=== PATIENT | male | born 1945 | race Caucasian/White ===

== ENCOUNTER → 2017-01-05 | Outpatient (CLI) | payer OTHER | END | disposition home or self-care (01) | DX: M17.11 Unilateral primary osteoarthritis, right knee (principal); R26.2 Difficulty in walking, not elsewhere classified; M25.561 Pain in right knee; M25.661 Stiffness of right knee, not elsewhere classified; M62.81 Muscle weakness (generalized); Z74.1 Need for assistance with personal care | CPT/HCPCS: 97161 GP; 97165 GO; 97530 GP; 97537 GO; G8978 GP; G8979 GP; G8980 GP; G8987 GO; G8988 GO; G8989 GO ==

== ENCOUNTER 2017-02-07 21:35 | Inpatient (IN) | payer OTHER ==
[~2017-02-07] VITALS: Ht 172.7 cm; Wt 80.6 kg
[~2017-02-07 21:35] MED LIST: ASPIR 8181 M1 PO; LEVOTHYROXINE88 MCG PO; LIPITOR20 MG PO; NORVASC5 MG PO
[2017-02-08 07:46] VITALS: BP 161/92
[2017-02-08 13:56] VITALS: BP 150/71
[2017-02-08 15:51] VITALS: BP 144/70
[2017-02-08 18:11] VITALS: BP 127/64
[2017-02-08 19:56] VITALS: BP 119/63
[2017-02-09 00:10] VITALS: BP 146/72
[2017-02-09 04:20] VITALS: BP 131/73
[2017-02-09 05:04] LABS: HEMATOCRIT 37.8 % (38.0-50.0); MCV 89.6 FL (86-99)
[2017-02-09 05:59] LABS: ANION GAP 7 MEQ/L (2-14); CHLORIDE 103 MEQ/L (99-109); GFR ESTIMATE (CALCULATED) > 59 mL/min/; GLUCOSE 91 mg/dL (70-99); POTASSIUM 4.4 MEQ/L (3.7-5.4); SAMPLE HEMOLYSIS CHECK 0; SAMPLE ICTERIC CHECK 0; SAMPLE LIPEMIA CHECK 0; SODIUM 139 MEQ/L (136-147); UREA NITROGEN (BUN) 9 mg/dL (9-23)
[2017-02-09 07:11] VITALS: BP 110/68
[2017-02-09 11:46] VITALS: BP 117/56
[2017-02-09 15:59] VITALS: BP 138/71
[2017-02-09 20:23] VITALS: BP 123/65
[2017-02-10 00:23] VITALS: BP 115/61
[2017-02-10 04:30] VITALS: BP 127/70
[2017-02-10 05:44] LABS: MCV 88.8 FL (86-99)
[2017-02-10 08:15] VITALS: BP 118/61
[2017-02-10] MEDS ORDERED: ELIQUIS2.5 MG PO (08:57)
[2017-02-10] MEDS ORDERED: ENDOCET 5-3251 EACH PO (08:57)
[2017-02-10 11:56] VITALS: BP 123/59
== END 2017-02-10 14:56 | DRG 470 ==
LOC: ENRESERV 21:35 → 2SOUTH 02-08 06:47 → 3WEST 02-08 13:29 → 2SOUTH 02-08 13:38 → 3WEST 02-10 14:56
PROVIDERS: Orthopaedic Surgery
PROC: 0SRC0J9 Replacement of Right Knee Joint with Synthetic Substitute, Cemented, Open Approach (ICD-10-PCS; principal; 2017-02-08)
DX: M17.11 Unilateral primary osteoarthritis, right knee (principal); I10 Essential (primary) hypertension; E78.00 Pure hypercholesterolemia, unspecified; E03.9 Hypothyroidism, unspecified; Z85.828 Personal history of other malignant neoplasm of skin; Z87.891 Personal history of nicotine dependence
CPT/HCPCS: 80048; 85014; 85018; 97530 GO; C1713; J0690; J1100; J1885; J2250; J2405; J7050; J7120

== ENCOUNTER 2017-08-06 13:24 | Inpatient (IN) | payer OTHER ==
[~2017-08-06] VITALS: Ht 172.7 cm; Wt 90.7 kg
[~2017-08-06 13:24] MED LIST changes: +ELIQUIS2.5 MG PO; +ENDOCET 5-3251 EACH PO
[2017-08-06 14:23] LABS: BASOPHIL (%) 0.7 % (0-1); BASOPHIL COUNT 0.1 K/uL (0-0.1); EOSINOPHIL (%) 1.5 % (0-5); EOSINOPHIL COUNT 0.1 K/uL (0-0.3); HEMATOCRIT 41.3 % (38.0-50.0); HEMOGLOBIN 14.1 G/DL (12.5-16.6); IMMATURE GRANULOCYTE (%) 0.4 % (0.0-0.7); LYMPHOCYTE (%) 20.5 % (15-42); LYMPHOCYTE COUNT 1.4 K/uL (1.0-2.8); MCH 30.5 PG (29.0-34.0); MCHC 34.1 G/DL (30.0-36.0); MCV 89.4 FL (86-99); MONOCYTE (%) 12.7 % (3-12); MONOCYTE COUNT 0.9 K/uL (0-0.8); NEUTROPHIL (%) 64.2 % (45-76); NEUTROPHIL COUNT 4.3 K/uL (1.8-6.4); NRBC (%) 0.3 /100 WBC (0-0); PLATELET COUNT 192 K/uL (156-360); RBC DIS.WIDTH-CV 13.1 % (11.8-14.6); RED BLOOD COUNT 4.62 M/uL (4.00-5.50); WHITE BLOOD COUNT 6.7 K/uL (4.1-10.2)
[2017-08-06 14:32] LABS: ALBUMIN 4.1 g/dL (3.2-4.8); CHLORIDE 108 mEq/L (99-109); INTER. NORMALIZED RATIO 1.1; POTASSIUM 4.1 mEq/L (3.7-5.4); SODIUM 139 mEq/L (136-147)
[2017-08-06 14:33] LABS: MAGNESIUM 2.4 mg/dL (1.3-2.7)
[2017-08-06 14:34] LABS: GLUCOSE 106 mg/dL (70-99); TOTAL PROTEIN 6.9 g/dL (6.4-8.3)
[2017-08-06 14:35] LABS: PTT 28.9 SEC (25-37)
[2017-08-06 14:36] LABS: TOTAL BILIRUBIN 1.1 mg/dL (0.0-1.0)
[2017-08-06 14:38] LABS: ALKALINE PHOSPHATASE 68 IU/L (3-129); CREATININE 0.8 mg/dL (0.6-1.3); GFR ESTIMATE (CALCULATED) > 59 mL/min/ (58.99-99999)
[2017-08-06 14:39] LABS: UREA NITROGEN (BUN) 15 mg/dL (9-23)
[2017-08-06 14:40] LABS: AST (GOT) 28 IU/L (2-34)
[2017-08-06 14:41] LABS: ALT (GPT) 36 IU/L (3-49)
[2017-08-06 14:44] LABS: TROP-I INTERPRETATION NEGATIVE; TROPONIN-I < 0.01 ng/mL (0.0-0.30)
[2017-08-06] MEDS ORDERED: LISINOPRIL20 MG PO (17:39)
[2017-08-06] MEDS ORDERED: LO-DOSE ASPIRIN81 M2 PO (17:41)
[2017-08-06] MEDS ORDERED: LODINE400 MG PO (17:41)
[2017-08-06 20:45] VITALS: BP 186/99
[2017-08-06 21:00] VITALS: BP 164/87
[2017-08-06 22:00] VITALS: BP 158/102
[2017-08-06 22:30] VITALS: BP 141/89
[2017-08-06 23:00] VITALS: BP 159/81
[2017-08-07] VITALS (19 sets, daily range): BP systolic 107–170; BP diastolic 56–117
[2017-08-07 05:55] LABS: INTER. NORMALIZED RATIO 1.1
[2017-08-07 06:01] LABS: BASOPHIL (%) 0.6 % (0-1); BASOPHIL COUNT 0.1 K/uL (0-0.1); EOSINOPHIL (%) 0.9 % (0-5); EOSINOPHIL COUNT 0.1 K/uL (0-0.3); HEMATOCRIT 41.4 % (38.0-50.0); HEMOGLOBIN 13.9 G/DL (12.5-16.6); IMMATURE GRANULOCYTE (%) 0.4 % (0.0-0.7); LYMPHOCYTE (%) 17.1 % (15-42); LYMPHOCYTE COUNT 1.4 K/uL (1.0-2.8); MCH 29.9 PG (29.0-34.0); MCHC 33.6 G/DL (30.0-36.0); MONOCYTE (%) 12.3 % (3-12); NEUTROPHIL (%) 68.7 % (45-76); NEUTROPHIL COUNT 5.5 K/uL (1.8-6.4); PLATELET COUNT 214 K/uL (156-360); RBC DIS.WIDTH-SD 42.3 % (39-53); RED BLOOD COUNT 4.65 M/uL (4.00-5.50); WHITE BLOOD COUNT 8.1 K/uL (4.1-10.2)
[2017-08-07 06:12] LABS: CHLORIDE 105 MEQ/L (99-109); CREATININE 0.8 MG/DL (0.6-1.3); GFR ESTIMATE (CALCULATED) > 59 mL/min/ (58.99-99999); GLUCOSE 90 mg/dL (70-99); MAGNESIUM 2.2 mg/dl (1.3-2.7); POTASSIUM 4.2 MEQ/L (3.7-5.4); SODIUM 138 MEQ/L (136-147); UREA NITROGEN (BUN) 14 mg/dL (9-23)
[2017-08-08] VITALS (12 sets, daily range): BP systolic 97–156; BP diastolic 53–83
[2017-08-08 05:10] LABS: BASOPHIL (%) 0.1 % (0-1); EOSINOPHIL (%) 0 % (0-5); HEMATOCRIT 41.5 % (38.0-50.0); HEMOGLOBIN 14.2 G/DL (12.5-16.6); IMMATURE GRANULOCYTE (%) 0.4 % (0.0-0.7); LYMPHOCYTE (%) 8.4 % (15-42); LYMPHOCYTE COUNT 1.2 K/uL (1.0-2.8); MCHC 34.2 G/DL (30.0-36.0); MCV 90.6 FL (86-99); MONOCYTE (%) 10.3 % (3-12); MONOCYTE COUNT 1.4 K/uL (0-0.8); NEUTROPHIL (%) 80.8 % (45-76); NEUTROPHIL COUNT 11.2 K/uL (1.8-6.4); PLATELET COUNT 219 K/uL (156-360); RBC DIS.WIDTH-CV 13.2 % (11.8-14.6); RBC DIS.WIDTH-SD 44.2 % (39-53); RED BLOOD COUNT 4.58 M/uL (4.00-5.50); WHITE BLOOD COUNT 13.8 K/uL (4.1-10.2)
[2017-08-08 05:35] LABS: CHLORIDE 108 mEq/L (99-109); SODIUM 140 mEq/L (136-147)
[2017-08-08 05:37] LABS: GLUCOSE 94 mg/dL (70-99)
[2017-08-08 05:41] LABS: CREATININE 0.8 mg/dL (0.6-1.3); GFR ESTIMATE (CALCULATED) > 59 mL/min/ (58.99-99999)
[2017-08-08 05:42] LABS: UREA NITROGEN (BUN) 12 mg/dL (9-23)
[2017-08-09 04:06] VITALS: BP 116/68
[2017-08-09 08:00] VITALS: BP 115/64
[2017-08-09] MEDS ORDERED: HYDROCODON-ACE1 EAC7 PO (08:25)
[2017-08-09] MEDS ORDERED: KEPPRA1000 MG PO (08:25)
== END 2017-08-09 10:51 | disposition home or self-care (01) | DRG 983 ==
LOC: EME 13:24 → 4WEST 17:47 → EDOF 17:47 → ENRESERV 17:48 → EDOF 19:41 → 4WEST 20:22 → ENRESERV 08-08 10:24 → 3EAST 08-08 11:35
PROVIDERS: Emergency Medicine; Internal Medicine Critical Care Medicine; Specialist
DX: G97.62 Postprocedural hematoma of a nervous system organ or structure following other procedure (principal); R56.9 Unspecified convulsions; Y83.8 Other surgical procedures as the cause of abnormal reaction of the patient, or of later complication, without mention of misadventure at the time of the procedure; I10 Essential (primary) hypertension; E78.00 Pure hypercholesterolemia, unspecified; Z96.651 Presence of right artificial knee joint; Z85.828 Personal history of other malignant neoplasm of skin; Z87.891 Personal history of nicotine dependence
CPT/HCPCS: 70450; 71046; 80048; 80053; 83735; 84100; 84484; 85025; 85610; 85730; 87641; 93005; 93880; 99281; 99285; C1713; C1729; C1758; J0131; J0360; J0690; J1953; J2060; J3010; J7030; J7050; S0028